=== PATIENT | male | born 1985 | race Caucasian/White ===

== ENCOUNTER 2021-11-10 17:17 | Emergency (ER) | payer OTHER ==
[~2021-11-10] VITALS: Ht 180.3 cm; Wt 106.1 kg
[2021-11-10 17:44] VITALS: BP 152/92
--- NOTE | 2021-11-10 17:50 | NUR ---
ARRIVAL PT ARRIVED TO THE ED VIA AMBULATORY. C/O CONGESTION, BODY ACHES, FATIGUE, COUGH AND SORE THROAT THAT STARTED TWO DAYS AGO. PT SHOWS NO SIGNS OF DISTRESS, VITALS OBTAINED, NOTIFIED OF PT ARRIVAL.
--- NOTE | 2021-11-10 18:09 | NUR ---
CRITICAL LAB COVID ANTIGEN IS POSITIVE, NOTIFIED AT THIS TIME.
--- NOTE | 2021-11-10 18:20 | NUR ---
REPORT REPORT GIVEN TO ONCOMING SHIFT.
--- NOTE | 2021-11-10 18:27 | ER.PDOC ---
General Chief Complaint: Cough/Congestion Stated Complaint: FEVER,COUGH Time seen by MD: 17:01 Source: patient Exam Limitations: no limitations History of Present Illness Initial Comments 36-year-old male presenting with COVID-like symptoms since Thursday. Patient states he has had a headache, sore throat, cough, congestion, body aches and low-grade temperature of 100.8. Patient states that he is unvaccinated and came in to get tested. Timing/Duration: gradual Severity: mild Associated Symptoms: fever/chills, runny nose, sore throat, cough All Other Systems: Reviewed and Negative Past Medical History Medical History: other Social History Alcohol Use: none Drug Use: none Physical Exam General Appearance: alert, no distress Eye: eyes nml inspection, lids & conjunct. nml Ear: ear nml Nose: nose nml Throat: pharynx nml, airway nml Neck: nml inspection, supple Respiratory: no resp.distress, breath sounds nml Abdomen: non-tender, no organomegaly CVS: reg rate & rhythm, heart sounds nml Skin: color nml, no rash, warm/dry Extremities: non-tender, nml ROM, no pedal edema NEURO/PSYCH: oriented x 3, CN's nml as tested, motor nml, sensation nml, mood/affect nml Results/Orders Results/Orders Orders - LINDA SHAH DO Covid19 Antigen Ivanna Cande (11/10/21 17:42) Influenza A&B (11/10/21 17:42) Vital Signs Date Time Temp Pulse Resp B/P (MAP) Pulse Ox O2 Delivery O2 Flow Rate FiO2 11/10/21 17:44 98.4 109 18 11/10/21 17:44 98.4 109 18 95 11/10/21 17:44 98.4 109 18 152/92 (112) 95 Room Air Laboratory Tests Test 11/10/21 17:40 Influenza Type A Antigen NEGATIVE (NEG) Influenza Type B Antigen NEGATIVE (NEG) SARS-CoV-2 Antigen (Rapid) POSITIVE (NEGATIVE) *A Progress Progress Patient is hemodynamically stable with COVID-19 ER DEPART Departure Time of Disposition: 18:26 Disposition: 01 HOME / SELF CARE / HOMELESS Impression: Primary Impression: COVID-19 Condition: Improved Patient Instructions: Cough, Adult, [id number] Referrals: PCP,UNKNOWN (PCP) PRIMARY CARE PROVIDER JOCELYNN MAC MD Duration or Time Spent with Pa: 15 min LINDA SHAH DO Nov 10, 2021 18:27
[2021-11-10 18:53] VITALS: BP 119/83
== END 2021-11-10 18:49 | disposition home or self-care (01) ==
LOC: ER 17:17
DX: U07.1 COVID-19 (principal)
CPT/HCPCS: 87426; 87804; 99283